=== PATIENT | male | born 1965 | race Caucasian/White ===

== ENCOUNTER 2025-01-11 08:04 | Outpatient (CLI) | payer BC ==
[2025-01-11 09:15] LABS: #Basophils 0.07 10x3/uL (0.0-0.2); #Eosinophils 0.45 10x3/uL (0.0-0.7); #Monocytes 0.63 10x3/uL (0.11-0.59); #Neutrophils 3.43 10x3/uL (1.40-6.50); %Basophils 1.0 % (0.0-1.0); %Eosinophils 6.2 % (0.0-10.0); %Lymphocytes 36.5 % (21.0-51.0); %Monocytes 8.7 % (0.0-10.0); %Neutrophils 47.2 % (42.0-75.0); Hematocrit 43.6 % (42.0-52.0); Hemoglobin 14.3 g/dL (14.0-18.0); Mean Corpuscular Hemoglobin 27.4 pg (27.0-31.0); Mean Corpuscular Volume 83.5 fL (78.0-98.0); Platelet Count 310 10x3/uL (130-400); Red Blood Cell (RBC) Count 5.22 mill/uL (4.70-6.10); White Blood Cell (WBC) Count 7.26 10x3/uL (4.8-10.8)
[2025-01-11 09:24] LABS: Anion Gap 14 mmol/L (10-20); BUN (Urea Nitrogen) 15 mg/dL (8.4-25.7); Calc. Creatinine Clearance 0 mL/min (70-130); Calcium 9.1 mg/dL (7.8-10.44); Carbon Dioxide 30 mmol/L (22-29); Chloride 105 mmol/L (98-107); Glucose 109 mg/dL (70-105); Potassium 3.3 mmol/L (3.5-5.1); Sodium 146 mmol/L (136-145)
[2025-01-11 09:36] LABS: INR-International Normal Ratio 1.0; Prothrombin Time 13.0 sec (12.0-14.7)
[2025-01-11 10:27] LABS: Bacteria/HPF None Seen HPF (None Seen); Glucose, Urine (Dipstick) Normal (Negative); Leukocyte Negative Leu/uL (Negative); Protein, Urine (Dipstick) 50 mg/dL (Neg-Trace); RBC/HPF 0-3 HPF (0-3); Specific Gravity, Urine 1.028 (1.002-1.036); WBC/HPF 0-3 HPF (0-3)
== END 2025-01-11 08:05 | disposition home or self-care (01) ==
LOC: LABBT 08:04
PROVIDERS: ATTEND Orthopaedic Surgery
DX: Z01.818 Encounter for other preprocedural examination (principal); M17.12 Unilateral primary osteoarthritis, left knee
CPT/HCPCS: 71046; 80048; 81001; 85025; 85610; 87081; 93005; 93010

== ENCOUNTER 2025-01-18 05:33 | Observation (INO) | payer BC ==
[2025-01-11 08:37] VITALS: BMI 39.1
[2025-01-18] MEDS ORDERED: Bupivacaine 0.25% HCL 30 ML VIAL ONE (06:35)
[2025-01-18] MEDS ORDERED: Lidocaine 1% (PF) 30 ML VIAL ONE (06:43)
[2025-01-18] MEDS ORDERED: Ropivacaine 0.5% HCl/PF (150 MG/30 ML VIAL) ONE (06:43)
[2025-01-18] MEDS ORDERED: CEFAZOLIN 2 GM VIAL ONE (06:56)
[2025-01-18] MEDS ORDERED: Tranexamic Acid 1,000 MG/10 ML VIAL ONE ×2 (07:01→09:15)
[2025-01-18] MEDS ORDERED: VANCOMYCIN 2 GRAM/400 ML BAG ONE (07:02)
[2025-01-18] MEDS ORDERED: Ondansetron PF 4 MG/2 ML Vial ONE (07:08)
[2025-01-18] MEDS ORDERED: fentaNYL PF 100 MCG/2 ML SYRINGE ONE (07:08)
[2025-01-18] MEDS ORDERED: Ketorolac Tromethamine 30 MG (1 mL) VIAL ONE (07:08)
[2025-01-18] MEDS ORDERED: Lidocaine 1% PF 5 ML VIAL ONE (07:08)
[2025-01-18] MEDS ORDERED: PROPOFOL 200 MG/20 ML VIAL ONE (07:21)
[2025-01-18] MEDS ORDERED: Acetaminophen/Codeine 30-300mg Tablet PO PRN ×2 (07:32→08:57)
[2025-01-18] MEDS ORDERED: Ropivacaine 0.2% 550 ML 550 ML NERVE BLCK SCH (07:45)
[2025-01-18] MEDS ORDERED: Ondansetron PF 4 MG/2 ML Vial IVP PRN ×2 (07:45→08:55)
[2025-01-18] MEDS ORDERED: Glycopyrrolate 0.2 MG/ML 5 ML SYRINGE ONE (08:45)
[2025-01-18] MEDS ORDERED: Acetaminophen 325 MG TAB PO PRN (08:55)
[2025-01-18] MEDS ORDERED: diphenhydrAMINE 25 MG CAP PO PRN (08:55)
[2025-01-18] MEDS: Acetaminophen/Codeine 30-300mg Tablet PO PRN (10:03)
[2025-01-18] MEDS: Carvedilol 25 MG TAB PO SCH ×2 (12:10→20:13)
[2025-01-18] MEDS: Ketorolac Tromethamine 30 MG (1 mL) VIAL IVP SCH (12:15)
[2025-01-18] MEDS: Lisinopril 20 MG TAB PO SCH (12:19)
[2025-01-18] MEDS: Aspirin 81 mg Enteric Coated Tablet PO SCH ×2 (14:30→14:31)
[2025-01-18] MEDS: Non-Formulary Item 1 EACH (Multivitamin [Multivitamin] 1 EACH Tablet) PO SCH (14:31)
[2025-01-18] MEDS: Pantoprazole 40 MG DR.TAB PO SCH (14:31)
[2025-01-18] MEDS: CEFAZOLIN 2 GM VIAL ONE (14:55)
[2025-01-18 15:04] VITALS: BMI 39.1
[2025-01-19 06:06] LABS: Hematocrit 36.7 % (42.0-52.0); Hemoglobin 12.0 g/dL (14.0-18.0); Mean Corpuscular Hemoglobin 27.3 pg (27.0-31.0); Mean Corpuscular Volume 83.6 fL (78.0-98.0); Platelet Count 255 10x3/uL (130-400); Red Blood Cell (RBC) Count 4.39 mill/uL (4.70-6.10); White Blood Cell (WBC) Count 13.29 10x3/uL (4.8-10.8)
[2025-01-19] MEDS: Pantoprazole 40 MG DR.TAB PO SCH (08:03)
[2025-01-19] MEDS: Multivitamin W/ Minerals 1 TAB PO SCH (08:03)
[2025-01-19] MEDS: Senokot S 8.6-50 MG TAB PO SCH (08:03)
[2025-01-19] MEDS: Ferrous Gluconate 324 MG TAB PO SCH (08:03)
[2025-01-19] MEDS: Lisinopril 20 MG TAB PO SCH (08:04)
[2025-01-19 12:46] VITALS: BP 131/79; TEMP 98
== END 2025-01-19 12:37 | disposition home or self-care (01) ==
LOC: SDC 05:33 → SURG A 09:46 → SDC 13:50
PROVIDERS: ADMIT Orthopaedic Surgery; ATTEND Orthopaedic Surgery
PROC: 0SRC0JZ Replacement of Right Knee Joint with Synthetic Substitute, Open Approach (ICD-10-PCS; principal; 2025-01-18)
DX: M17.12 Unilateral primary osteoarthritis, left knee (principal); I10 Essential (primary) hypertension; Z87.891 Personal history of nicotine dependence; Z79.82 Long term (current) use of aspirin; Z79.899 Other long term (current) drug therapy; Z88.8 Allergy status to other drugs, medicaments and biological substances
CPT/HCPCS: 0055T; 27447; 64448; 36415; 85027; A4306; C1713; C1776; C1889; J0169; J0665; J1100; J1885; J2003; J2250; J2405; J2704; J2795; J3010; J3375; J7030